=== PATIENT | male | born 1950 | race Caucasian/White ===

== ENCOUNTER 2018-06-14 10:32 | Inpatient (IN) ==
[2018-06-14] MEDS ORDERED: ASPIRIN 325 MG TABLET PO ONE (11:00)
[2018-06-14] MEDS ORDERED: POTASSIUM CHLORIDE RIDER 10 MEQ in PREMIX 1 EACH IV PRN (11:00)
[2018-06-14] MEDS ORDERED: SODIUM CHLORIDE 0.9% 1,000 ML IV SCH ×2 (11:00→15:34)
[2018-06-14] MEDS ORDERED: diphenhydrAMINE CAP 25 MG CAPSULE PO ONE (11:00)
[2018-06-14] MEDS ORDERED: DIAZEPAM 5 MG TABLET PO ONE (11:00)
[2018-06-14] MEDS ORDERED: MAGNESIUM SULF RIDER 2 GM in PREMIX 1 EACH IV PRN ×2 (11:00→15:21)
[2018-06-14 11:49] LABS: Basophils % 0.6 % (0.0-0.8); Eosinophils # 0.3 10*3/uL (0.0-0.87); Eosinophils % 3.9 % (0.00-10.9); Hemoglobin 14.5 GM/DL (14.0-18.0); Immature Granulocytes % 0.2 %; Immature Granulocytes Absolute 0.01 #; Lymphocytes # 1.9 10*3/uL (1.4-4.0); Lymphocytes % 29.4 % (21.2-54.2); Mean Corpuscular Hemoglobin 31 PG (27-34); Mean Corpuscular Volume 92.4 FL (87-102); Mean Platelet Volume 10.7 FL (9.6-12.0); Monocytes # 0.6 10*3/uL (0.11-0.8); Monocytes % 8.6 % (1.7-12.7); Neutrophils # 3.7 10*3/uL (1.4-7.4); Neutrophils % 57.3 % (38.7-73.9); Platelet Count 203 T/CUMM (130-400); Red Blood Count 4.76 MC/CUMM (3.8-5.5); Red Cell Distribution Width 12.7 % (9.3-17.3); White Blood Count 6.4 T/CUMM (4-12)
[2018-06-14 11:53] LABS: PT Patient Result 10.2 SECS; Partial Thromboplastin Time 24.7 SECS (0-40)
[2018-06-14 12:22] LABS: Calcium 8.7 MG/DL (8.5-10.1); Potassium 4.6 MMOL/L (3.5-5.1)
[2018-06-14] MEDS ORDERED: methylPREDNISolone SOD SUC 125 MG/2 ML VIAL IV ONE (12:39)
[2018-06-14] MEDS ORDERED: FAMOTIDINE 20 MG/2 ML VIAL IV ONE (12:40)
[2018-06-14] MEDS ORDERED: diphenhydrAMINE 50 MG/1 ML VIAL IV ONE (12:40)
[2018-06-14] MEDS ORDERED: diphenhydrAMINE CAP 25 MG CAPSULE ONE (12:48)
[2018-06-14] MEDS ORDERED: DIAZEPAM 5 MG TABLET ONE (12:48)
[2018-06-14] MEDS ORDERED: LIDOCAINE 1% 20 ML VIAL ONE (14:08)
[2018-06-14] MEDS ORDERED: MIDAZOLAM 2 MG/2 ML VIAL ONE (14:09)
[2018-06-14] MEDS ORDERED: fentaNYL 100 MCG/2 ML VIAL ONE (14:09)
[2018-06-14] MEDS ORDERED: HEPARIN 5,000 UNIT/1 ML VIAL ONE (14:21)
[2018-06-14] MEDS ORDERED: ZALEPLON 5 MG CAPSULE PO PRN (15:26)
[2018-06-14] MEDS ORDERED: ACETAMINOPHEN 325 MG TABLET PO PRN (15:26)
[2018-06-14] MEDS ORDERED: ACETAMINOPHEN/CODEINE 300-30 MG TABLET PO PRN (15:26)
[2018-06-14] MEDS ORDERED: CLEAR EYES BOTH EYES PRN (15:34)
[2018-06-14] MEDS ORDERED: NITROGLYCERIN SL 0.4 MG TABLET SL PRN (16:00)
[2018-06-14] MEDS: PANTOPRAZOLE 40 MG TABLET PO SCH (16:10)
[2018-06-14] MEDS: FAMOTIDINE 20 MG TABLET PO SCH ×2 (16:10→21:12)
[2018-06-14 16:13] LABS: Risk Ratio 3.93; VLDL CHOLESTEROL 23.2 MG/DL
[2018-06-14] MEDS: LORATADINE 10 MG TABLET PO SCH (17:46)
[2018-06-14] MEDS ORDERED: predniSONE 50 MG TABLET PO ONE (18:00)
[2018-06-14] MEDS ORDERED: FIBER 0.52 GM PO SCH (21:00)
[2018-06-14] MEDS: METOPROLOL TARTRATE 25 MG TABLET PO SCH (21:11)
[2018-06-14] MEDS: diphenhydrAMINE CAP 25 MG CAPSULE PO SCH (21:12)
[2018-06-15 04:30] LABS: Basophils % 0.1 % (0.0-0.8); Hematocrit 43.6 VOL% (42.0-52.0); Hemoglobin 14.5 GM/DL (14.0-18.0); Immature Granulocytes % 0.7 %; Mean Corpuscular HGB Conc 33.3 GM/DL (32-36); Mean Corpuscular Hemoglobin 30 PG (27-34); Mean Corpuscular Volume 91.2 FL (87-102); Mean Platelet Volume 11.2 FL (9.6-12.0); Monocytes # 0.1 10*3/uL (0.11-0.8); Monocytes % 0.9 % (1.7-12.7); Neutrophils # 13.6 10*3/uL (1.4-7.4); Neutrophils % 91.3 % (38.7-73.9); Platelet Count 205 T/CUMM (130-400); Red Blood Count 4.78 MC/CUMM (3.8-5.5); Red Cell Distribution Width 12.5 % (9.3-17.3); White Blood Count 14.9 T/CUMM (4-12)
[2018-06-15 05:04] LABS: Giant Platelets Few; Lymphocytes 8 % (20-55); Platelet Estimate Adequate; Segmented Neutrophils 92 % (50-85); Total Cells Counted 100
[2018-06-15] MEDS ORDERED: ENOXAPARIN 40 MG/0.4 ML SYRINGE SUBCUT SCH (09:00)
[2018-06-15] MEDS: FAMOTIDINE 20 MG TABLET PO SCH ×2 (09:38→21:11)
[2018-06-15] MEDS: ROSUVASTATIN 10 MG TABLET PO SCH (09:38)
[2018-06-15] MEDS: METOPROLOL TARTRATE 25 MG TABLET PO SCH ×2 (09:38→21:11)
[2018-06-15] MEDS: ISOSORBIDE MONONITRATE 30 MG TABLET PO SCH (09:39)
[2018-06-15] MEDS: LORATADINE 10 MG TABLET PO SCH (09:39)
[2018-06-15] MEDS: LOSARTAN 25 MG TABLET PO SCH (09:39)
[2018-06-15] MEDS: ASPIRIN 325 MG TABLET PO SCH (09:39)
[2018-06-15] MEDS: PANTOPRAZOLE 40 MG TABLET PO SCH (09:39)
[2018-06-15] MEDS ORDERED: DEXTROSE 50% 25 GM/50 ML VIAL IV PRN (09:46)
[2018-06-15] MEDS ORDERED: CEFUROXIME INJ 1,500 MG in SYRINGE 1 EACH IV ONE (09:46)
[2018-06-15] MEDS ORDERED: GLUCAGON 1 MG VIAL IM PRN (09:46)
[2018-06-15 10:36] LABS: ABG Base Excess -2.9 MMOL/L (-2.5-2.5); ABG HCO3 21.9 MMOL/L (20-26); ABG Oxygen Saturation 96.6 % (95-100); ABG PCO2 32.8 MM HG (35-48); ABG PH 7.408 (7.35-7.45); ABG PO2 83.5 MM HG (80-95); ABG TCO2 17.6 MMOL/L (23-27); Pt O2 Delivery Device Room Air
[2018-06-15] MEDS: predniSONE 50 MG TABLET PO SCH ×2 (10:45→10:59)
[2018-06-15] MEDS ORDERED: predniSONE 50 MG TABLET PO ONE (11:00)
[2018-06-15] MEDS ORDERED: SODIUM PHOSPHATE ENEMA 133 ML BOTTLE RECTAL ONE (15:33)
[2018-06-15] MEDS: CHLORHEXIDINE 4% SOLN 118 ML BOTTLE TOP SCH ×2 (16:14→21:11)
[2018-06-15] MEDS: CHLORHEXIDINE 0.12% ORAL RINSE 60 ML BOTTLE SWISH/SPIT SCH (21:11)
[2018-06-15] MEDS: diphenhydrAMINE CAP 25 MG CAPSULE PO SCH (21:11)
[2018-06-16] MEDS ORDERED: VANCOMYCIN 1,000 MG VIAL ONE (05:18)
[2018-06-16] MEDS ORDERED: PAPAVERINE 60 MG/2 ML VIAL ONE (05:18)
[2018-06-16] MEDS ORDERED: FAMOTIDINE 20 MG TABLET PO ONE (05:30)
[2018-06-16] MEDS ORDERED: LORazepam 1 MG TABLET PO ONE (05:30)
[2018-06-16] MEDS: PANTOPRAZOLE 40 MG TABLET PO SCH ×2 (05:43→14:24)
[2018-06-16] MEDS: METOPROLOL TARTRATE 25 MG TABLET PO SCH ×2 (05:43→14:25)
[2018-06-16] MEDS: ISOSORBIDE MONONITRATE 30 MG TABLET PO SCH ×2 (05:44→14:25)
[2018-06-16] MEDS ORDERED: SUFentanil 250 MCG/5 ML AMP ONE (05:55)
[2018-06-16] MEDS ORDERED: CEFUROXIME INJ 1,500 MG in SYRINGE 1 EACH IV ONE (06:30)
[2018-06-16] MEDS ORDERED: PHENYLEPHRINE DRIP 40 MG/250 ML PREMIX IV ONE (07:42)
[2018-06-16] MEDS ORDERED: NITROPRUSSIDE 50 MG/2 ML VIAL ONE (07:42)
[2018-06-16] MEDS ORDERED: CALCIUM CHLORIDE 1,000 MG/10 ML SYRINGE IV ONE (07:43)
[2018-06-16] MEDS ORDERED: POTASSIUM CHLORIDE RIDER 100 ML IV ONE (07:43)
[2018-06-16] MEDS ORDERED: ALBUMIN 5% 12.5 GM/250 ML VIAL IV ONE (07:43)
[2018-06-16 07:47] LABS: ABG Base Excess -0.7 MMOL/L (-2.5-2.5); ABG HCO3 23.9 MMOL/L (20-26); ABG PCO2 33.3 MM HG (35-48); ABG PH 7.443 (7.35-7.45); ABG TCO2 20.2 MMOL/L (23-27); Glucose Heart Surgery 100 MG/DL (74-106); Hematocrit Heart Surgery 36.4 PERCENT (42-52); Hemoglobin Heart Surgery 11.8 G/DL (14.0-18.0); Ionized Calcium Arterial 1.07 MMOL/L (1.21-1.46); PCO2 Patient Temp Arterial 33.3 MMHG; PH Patient Temp Arterial 7.443; Patient Temperature 37 CELCIUS; Potassium Heart/CVR 3.5 MMOL/L (3.5-5.1); Sodium Heart/CVR 141 MMOL/L (135-145)
[2018-06-16 07:54] LABS: Apearance,Urine CLEAR (Clear); Bilirubin,Urine Negative (Negative); Blood, Urine Negative (Negative); Glucose,Urine (UA) Negative (Negative); Ketones,Urine Negative (Negative); Mucus,Urine Occasional /LPF (Occasional); Nitrite,Urine Negative (Negative); Protein,Urine Negative; RBC,Urine 1 /HPF (0-4); Urine Color Yellow (Yellow); Urine Specific Gravity 1.019 (1.001-1.035); Urine Urobilinogen < 2.0 EU/DL (0.2-1.0); WBC,Urine <1 /HPF (0-6)
[2018-06-16] MEDS ORDERED: PHENYLEPHRINE DRIP 20 MG/250 ML PREMIX IV ONE (09:17)
[2018-06-16] MEDS ORDERED: NITROGLYCERIN DRIP 50 MG/250 ML BOTTLE IV ONE ×2 (09:17→11:21)
[2018-06-16] MEDS ORDERED: HEPARIN/NACL 0.9% 2 UNITS/ML 500 ML IV ONE (09:17)
[2018-06-16 09:20] LABS: Hematocrit Heart Surgery 25.2 PERCENT (42-52); PCO2 Patient Temp Venous 36.3 MM HG; PH Patient Temp Venous 7.454; PO2 Patient Temp Venous 46.5 MM HG; Potassium Heart/CVR 4.4 MMOL/L (3.5-5.1); VBG Base Excess 1.6 MEQ/L (0-4); VBG HCO3 25.7 MEQ/L (24-28); VBG Oxygen Saturation 85.1 %; VBG PCO2 36.3 MMHG (41-51); VBG PH 7.454; VBG PO2 46.5 MMHG (17-40)
[2018-06-16 09:25] LABS: Hemoglobin Heart Surgery 8.1 G/DL (14.0-18.0)
[2018-06-16] MEDS ORDERED: MIDAZOLAM 10 MG/2 ML VIAL ONE ×2 (09:33)
[2018-06-16] MEDS ORDERED: HEPARIN 10,000 UNIT/10 ML VIAL ONE ×2 (09:33→10:27)
[2018-06-16] MEDS ORDERED: CALCIUM CHLORIDE 1,000 MG/10 ML VIAL IV ONE (09:33)
[2018-06-16] MEDS ORDERED: VECURONIUM 10 MG VIAL IV ONE (09:34)
[2018-06-16] MEDS ORDERED: SODIUM CHLORIDE 0.9% 100 ML IV ONE (09:34)
[2018-06-16] MEDS ORDERED: SODIUM CHLORIDE 0.9% 1,000 ML IV ONE (09:34)
[2018-06-16] MEDS ORDERED: ETOMIDATE 40 MG/20 ML VIAL IV ONE (09:34)
[2018-06-16] MEDS ORDERED: ePHEDrine 50 MG/ML AMP ONE (09:34)
[2018-06-16] MEDS ORDERED: LACTATED RINGERS 1,000 ML IV ONE (09:34)
[2018-06-16] MEDS ORDERED: SODIUM CHLORIDE 0.9% 250 ML IV ONE (09:34)
[2018-06-16] MEDS ORDERED: AMINOCAPROIC ACID 5,000 MG/20 ML VIAL IV ONE (09:34)
[2018-06-16 09:50] LABS: Hematocrit Heart Surgery 28.5 PERCENT (42-52); Hemoglobin Heart Surgery 9.2 G/DL (14.0-18.0); PCO2 Patient Temp Venous 32.8 MM HG; PH Patient Temp Venous 7.496; PO2 Patient Temp Venous 48.8 MM HG; Potassium Heart/CVR 4.1 MMOL/L (3.5-5.1); VBG Base Excess 2.4 MEQ/L (0-4); VBG HCO3 26.4 MEQ/L (24-28); VBG PCO2 32.8 MMHG (41-51); VBG PH 7.496; VBG PO2 48.8 MMHG (17-40)
[2018-06-16] MEDS ORDERED: SODIUM BICARBONATE 50 MEQ/50 ML SYRINGE IV ONE (10:27)
[2018-06-16] MEDS ORDERED: PROTAMINE SULFATE 250 MG/25 ML VIAL IV ONE (10:27)
[2018-06-16] MEDS ORDERED: ALBUMIN 25% 25 GM/100 ML VIAL IV ONE (10:27)
[2018-06-16] MEDS ORDERED: MANNITOL 12.5 GM/50 ML VIAL IV ONE (10:27)
[2018-06-16] MEDS ORDERED: FUROSEMIDE 20 MG/2 ML VIAL ONE (10:27)
[2018-06-16] MEDS ORDERED: methylPREDNISolone SOD SUC 1,000 MG/8 ML VIAL ONE (10:27)
[2018-06-16] MEDS ORDERED: DEXTROSE 5% KCL 20 MEQ 20 MEQ/1,000 ML BAG IV ONE (10:27)
[2018-06-16] MEDS ORDERED: MAGNESIUM SULFATE 10 GM/20 ML VIAL IV ONE (10:27)
[2018-06-16] MEDS ORDERED: PROTAMINE SULFATE 50 MG/5 ML VIAL IV ONE ×3 (10:28→11:45)
[2018-06-16] MEDS ORDERED: PHENYLEPHRINE 10 MG/1 ML VIAL IV ONE (10:28)
[2018-06-16 10:43] LABS: ABG Base Excess 0.1 MMOL/L (-2.5-2.5); ABG HCO3 24.5 MMOL/L (20-26); ABG Oxygen Saturation 99.8 % (95-100); ABG PCO2 35.7 MM HG (35-48); ABG PH 7.434 (7.35-7.45); ABG TCO2 21.7 MMOL/L (23-27); Glucose Heart Surgery 203 MG/DL (74-106); Hematocrit Heart Surgery 31.6 PERCENT (42-52); Hemoglobin Heart Surgery 10.2 G/DL (14.0-18.0); Ionized Calcium Arterial 1.27 MMOL/L (1.21-1.46); PCO2 Patient Temp Arterial 35.7 MMHG; PH Patient Temp Arterial 7.434; Patient Temperature 37 CELCIUS; Potassium Heart/CVR 3.4 MMOL/L (3.5-5.1); Sodium Heart/CVR 138 MMOL/L (135-145)
[2018-06-16] MEDS: LACTATED RINGERS 1,000 ML IV PRN ×7 (11:45→21:18)
[2018-06-16] MEDS ORDERED: MIDAZOLAM 2 MG/2 ML VIAL IV PRN (11:47)
[2018-06-16] MEDS ORDERED: MAGNESIUM SULF RIDER 2 GM in PREMIX 1 EACH IV PRN (11:47)
[2018-06-16] MEDS ORDERED: INSULIN REGULAR DRIP 100 ML IV SCH (11:47)
[2018-06-16] MEDS ORDERED: MIDAZOLAM 10 MG/2 ML VIAL IV PRN (11:47)
[2018-06-16] MEDS ORDERED: LACTATED RINGERS 250 ML IV PRN (11:47)
[2018-06-16] MEDS ORDERED: POTASSIUM CHLORIDE RIDER 10 MEQ in PREMIX 1 EACH IV PRN (11:47)
[2018-06-16] MEDS ORDERED: INSULIN REGULAR 100 UNIT/ML IV PRN (11:47)
[2018-06-16] MEDS ORDERED: VECURONIUM 10 MG VIAL IV PRN ×2 (11:47)
[2018-06-16] MEDS ORDERED: CALCIUM CHLORIDE 1,000 MG/10 ML SYRINGE IV PRN (11:47)
[2018-06-16] MEDS ORDERED: DEXTROSE 50% 25 GM/50 ML VIAL IV PRN ×2 (11:47)
[2018-06-16] MEDS ORDERED: PHENYLEPHRINE DRIP 40 MG/250 ML PREMIX IV PRN (11:47)
[2018-06-16] MEDS ORDERED: INSULIN REGULAR 100 UNIT/ML IV ONE (11:47)
[2018-06-16] MEDS ORDERED: MAGNESIUM SULF RIDER 4 GM in PREMIX 1 EACH IV PRN (11:47)
[2018-06-16] MEDS ORDERED: MORPHINE 10 MG/1 ML VIAL IV PRN (11:47)
[2018-06-16] MEDS ORDERED: MORPHINE 4 MG/1 ML VIAL IV PRN (11:47)
[2018-06-16] MEDS ORDERED: ACETAMINOPHEN 650 MG SUPP RECTAL PRN (11:47)
[2018-06-16] MEDS ORDERED: SODIUM CHLORIDE 0.45% 1,000 ML IV SCH ×2 (11:47)
[2018-06-16] MEDS ORDERED: ONDANSETRON 4 MG/2 ML VIAL IV PRN (11:47)
[2018-06-16] MEDS ORDERED: NITROPRUSSIDE 100 MG in DEXTROSE 5% 250 ML IV PRN (11:47)
[2018-06-16 11:54] LABS: Basophils % 0.3 % (0.0-0.8); Eosinophils # 0.1 10*3/uL (0.0-0.87); Hematocrit 35.2 VOL% (42.0-52.0); Hemoglobin 11.9 GM/DL (14.0-18.0); Immature Granulocytes % 1.5 %; Immature Granulocytes Absolute 0.17 #; Lymphocytes # 1.2 10*3/uL (1.4-4.0); Lymphocytes % 10.6 % (21.2-54.2); Mean Corpuscular HGB Conc 33.8 GM/DL (32-36); Mean Corpuscular Hemoglobin 30 PG (27-34); Mean Corpuscular Volume 89.8 FL (87-102); Mean Platelet Volume 11.2 FL (9.6-12.0); Monocytes # 0.7 10*3/uL (0.11-0.8); Neutrophils # 8.9 10*3/uL (1.4-7.4); Neutrophils % 80.6 % (38.7-73.9); Platelet Count 158 T/CUMM (130-400); Red Blood Count 3.92 MC/CUMM (3.8-5.5); Red Cell Distribution Width 13.2 % (9.3-17.3)
[2018-06-16 11:56] LABS: ABG Base Excess 0.7 MMOL/L (-2.5-2.5); ABG Oxygen Saturation 97.8 % (95-100); ABG PCO2 41.9 MM HG (35-48); ABG PH 7.396 (7.35-7.45); ABG TCO2 22.3 MMOL/L (23-27); Glucose Heart Surgery 174 MG/DL (74-106); Hematocrit Heart Surgery 42.4 PERCENT (42-52); Hemoglobin Heart Surgery 13.8 G/DL (14.0-18.0); Potassium Heart/CVR 3.5 MMOL/L (3.5-5.1)
[2018-06-16 11:59] LABS: INR 1.1
[2018-06-16] MEDS: ALBUMIN 5% 12.5 GM in PREMIX 1 EACH IV PRN ×5 (12:00→17:26)
[2018-06-16] MEDS: POTASSIUM CHLORIDE RIDER 20 MEQ in PREMIX 1 EACH IV PRN ×5 (12:00→21:44)
[2018-06-16] MEDS ORDERED: SEVOFLURANE 1 UNIT/15 MINUTE INH ONE (12:11)
[2018-06-16 12:20] LABS: Albumin 3.5 G/DL (3.4-5.0); Bilirubin,Total 0.8 MG/DL (0.2-1.0); Calcium 8.7 MG/DL (8.5-10.1); Osmolality,Calculated 293.7 MOS/KG (273-304); Potassium 3.5 MMOL/L (3.5-5.1); Total Protein 5.9 G/DL (6.4-8.3)
[2018-06-16] MEDS: CHLORHEXIDINE 4% SOLN 118 ML BOTTLE TOP SCH (12:53)
[2018-06-16] MEDS: LORATADINE 10 MG TABLET PO SCH (12:53)
[2018-06-16] MEDS: KETOROLAC 30 MG/1 ML VIAL IV SCH ×3 (12:57→23:01)
[2018-06-16 13:04] LABS: CKMB % 8.3 %
[2018-06-16 13:05] LABS: Troponin I 3.8 NG/ML (0.00-0.045)
[2018-06-16 13:30] LABS: ABG Base Excess 1.1 MMOL/L (-2.5-2.5); ABG HCO3 25.4 MMOL/L (20-26); ABG Oxygen Saturation 97.1 % (95-100); ABG PCO2 42.7 MM HG (35-48); ABG PH 7.395 (7.35-7.45); ABG PO2 88.6 MM HG (80-95); ABG TCO2 23.4 MMOL/L (23-27); Glucose Heart Surgery 136 MG/DL (74-106); Hematocrit Heart Surgery 34.8 PERCENT (42-52); Hemoglobin Heart Surgery 11.3 G/DL (14.0-18.0); Potassium Heart/CVR 4.2 MMOL/L (3.5-5.1)
[2018-06-16] MEDS: FAMOTIDINE 20 MG TABLET PO SCH (14:24)
[2018-06-16] MEDS: CHLORHEXIDINE 0.12% ORAL RINSE 60 ML BOTTLE SWISH/SPIT SCH ×2 (14:24→21:07)
[2018-06-16] MEDS: ROSUVASTATIN 10 MG TABLET PO SCH (14:25)
[2018-06-16] MEDS: ASPIRIN 325 MG TABLET PO SCH (14:25)
[2018-06-16] MEDS: LOSARTAN 25 MG TABLET PO SCH (14:25)
[2018-06-16] MEDS: SODIUM CHLORIDE 0.9% 1,000 ML IV SCH (14:26)
[2018-06-16 15:13] LABS: ABG Base Excess 2.2 MMOL/L (-2.5-2.5); ABG HCO3 26.4 MMOL/L (20-26); ABG PCO2 42.4 MM HG (35-48); ABG PH 7.413 (7.35-7.45); ABG TCO2 24.6 MMOL/L (23-27); Glucose Heart Surgery 139 MG/DL (74-106); Hematocrit Heart Surgery 30.8 PERCENT (42-52); Potassium Heart/CVR 3.8 MMOL/L (3.5-5.1)
[2018-06-16 18:47] LABS: ABG Base Excess 1.6 MMOL/L (-2.5-2.5); ABG HCO3 25.8 MMOL/L (20-26); ABG Oxygen Saturation 98.3 % (95-100); ABG PCO2 42.5 MM HG (35-48); ABG PH 7.403 (7.35-7.45); ABG TCO2 24.2 MMOL/L (23-27); Glucose Heart Surgery 161 MG/DL (74-106); Hematocrit Heart Surgery 29.9 PERCENT (42-52); Hemoglobin Heart Surgery 9.6 G/DL (14.0-18.0); Potassium Heart/CVR 4.2 MMOL/L (3.5-5.1)
[2018-06-16] MEDS: CEFUROXIME INJ 1,500 MG in SYRINGE 1 EACH IV SCH (19:13)
[2018-06-16] MEDS: INSULIN REGULAR 100 UNIT/ML SUBCUT PRN (19:13)
[2018-06-16 20:40] LABS: ABG Base Excess 1.2 MMOL/L (-2.5-2.5); ABG HCO3 25.5 MMOL/L (20-26); ABG Oxygen Saturation 97.7 % (95-100); ABG PH 7.394 (7.35-7.45); ABG PO2 96.1 MM HG (80-95); ABG TCO2 23.9 MMOL/L (23-27); Glucose Heart Surgery 179 MG/DL (74-106); Hematocrit Heart Surgery 31.5 PERCENT (42-52); Hemoglobin Heart Surgery 10.2 G/DL (14.0-18.0); Potassium Heart/CVR 4.1 MMOL/L (3.5-5.1)
[2018-06-16 21:04] LABS: CKMB % 5.7 %
[2018-06-16 21:06] LABS: Troponin I 5.06 NG/ML (0.00-0.045)
[2018-06-16 21:39] LABS: ABG Base Excess 0.8 MMOL/L (-2.5-2.5); ABG HCO3 25.5 MMOL/L (20-26); ABG Oxygen Saturation 96.3 % (95-100); ABG PCO2 41.6 MM HG (35-48); ABG PH 7.406 (7.35-7.45); ABG PO2 94.1 MM HG (80-95); ABG TCO2 26.8 MMOL/L (23-27); Glucose Heart Surgery 179 MG/DL (74-106); Potassium Heart/CVR 3.9 MMOL/L (3.5-5.1)
[2018-06-17] MEDS: INSULIN REGULAR 100 UNIT/ML SUBCUT PRN (00:21)
[2018-06-17 04:05] LABS: ABG Base Excess 0.4 MMOL/L (-2.5-2.5); ABG HCO3 24.8 MMOL/L (20-26); ABG Oxygen Saturation 97.2 % (95-100); ABG PCO2 41.4 MM HG (35-48); ABG PH 7.395 (7.35-7.45); ABG PO2 94.1 MM HG (80-95); ABG TCO2 22.9 MMOL/L (23-27); Glucose Heart Surgery 152 MG/DL (74-106); Hematocrit Heart Surgery 32.5 PERCENT (42-52); Hemoglobin Heart Surgery 10.5 G/DL (14.0-18.0); Potassium Heart/CVR 4.1 MMOL/L (3.5-5.1)
[2018-06-17 04:18] LABS: Basophils % 0.1 % (0.0-0.8); Hematocrit 29.6 VOL% (42.0-52.0); Hemoglobin 9.9 GM/DL (14.0-18.0); Immature Granulocytes % 0.8 %; Lymphocytes # 0.6 10*3/uL (1.4-4.0); Lymphocytes % 4.6 % (21.2-54.2); Mean Corpuscular HGB Conc 33.4 GM/DL (32-36); Mean Corpuscular Hemoglobin 30 PG (27-34); Mean Corpuscular Volume 90.5 FL (87-102); Mean Platelet Volume 11.2 FL (9.6-12.0); Monocytes # 0.6 10*3/uL (0.11-0.8); Monocytes % 4.8 % (1.7-12.7); Neutrophils # 11.3 10*3/uL (1.4-7.4); Neutrophils % 89.7 % (38.7-73.9); Platelet Count 143 T/CUMM (130-400); Red Blood Count 3.27 MC/CUMM (3.8-5.5); Red Cell Distribution Width 12.9 % (9.3-17.3); White Blood Count 12.6 T/CUMM (4-12)
[2018-06-17 04:41] LABS: Albumin 3.9 G/DL (3.4-5.0); Bilirubin,Direct 0.15 MG/DL (0.0-0.20); Bilirubin,Total 0.8 MG/DL (0.2-1.0); Calcium 8.2 MG/DL (8.5-10.1); Osmolality,Calculated 292.7 MOS/KG (273-304); Potassium 4.1 MMOL/L (3.5-5.1); Total Protein 5.8 G/DL (6.4-8.3)
[2018-06-17 04:42] LABS: Band Neutrophils 3 % (0-10); CKMB % 4.9 %; Lymphocytes 6 % (20-55); Platelet Estimate Normal; Segmented Neutrophils 89 % (50-85); Total Cells Counted 100
[2018-06-17 04:43] LABS: Troponin I 2.62 NG/ML (0.00-0.045)
[2018-06-17] MEDS: KETOROLAC 30 MG/1 ML VIAL IV SCH ×4 (06:20→23:46)
[2018-06-17] MEDS: CEFUROXIME INJ 1,500 MG in SYRINGE 1 EACH IV SCH (07:51)
[2018-06-17] MEDS: CHLORHEXIDINE 0.12% ORAL RINSE 60 ML BOTTLE SWISH/SPIT SCH ×2 (08:17→20:27)
[2018-06-17] MEDS: CARVEDILOL 3.125 MG TABLET PO SCH ×2 (08:17→20:27)
[2018-06-17] MEDS: LOSARTAN 25 MG TABLET PO SCH (10:00)
[2018-06-17] MEDS: LORATADINE 10 MG TABLET PO SCH (10:00)
[2018-06-17] MEDS ORDERED: SODIUM CHLOR 0.45% KCL 20 MEQ 20 MEQ/1,000 ML BAG IV SCH (11:02)
[2018-06-17] MEDS ORDERED: ONDANSETRON 4 MG/2 ML VIAL IV PRN (11:02)
[2018-06-17] MEDS ORDERED: ACETAMINOPHEN 325 MG TABLET PO PRN (11:02)
[2018-06-17] MEDS ORDERED: ZALEPLON 5 MG CAPSULE PO PRN (11:02)
[2018-06-17] MEDS ORDERED: DEXTROSE 50% 25 GM/50 ML VIAL IV PRN ×2 (11:02)
[2018-06-17] MEDS ORDERED: MAGNESIUM SULF RIDER 2 GM in PREMIX 1 EACH IV PRN (11:02)
[2018-06-17] MEDS ORDERED: MAGNESIUM SULF RIDER 4 GM in PREMIX 1 EACH IV PRN (11:02)
[2018-06-17] MEDS ORDERED: GLUCAGON 1 MG VIAL IM PRN ×2 (11:02)
[2018-06-17] MEDS ORDERED: MAGNESIUM HYDROXIDE SUSP 30 ML UDCUP PO PRN (11:02)
[2018-06-17] MEDS ORDERED: ALUMINUM/MAGNES/SIMETH MAX STR 30 ML UDCUP PO PRN (11:02)
[2018-06-17] MEDS: oxyCODONE/ACETAMINOPHEN 5-325 MG TABLET PO PRN (20:26)
[2018-06-17] MEDS: ROSUVASTATIN 10 MG TABLET PO SCH (20:27)
[2018-06-18] MEDS: KETOROLAC 30 MG/1 ML VIAL IV SCH ×4 (05:34→22:21)
[2018-06-18] MEDS ORDERED: FUROSEMIDE 40 MG/4 ML VIAL IV ONE (06:00)
[2018-06-18 06:37] LABS: Basophils % 0.1 % (0.0-0.8); Hematocrit 32.1 VOL% (42.0-52.0); Hemoglobin 10.8 GM/DL (14.0-18.0); Immature Granulocytes Absolute 0.16 #; Lymphocytes # 0.9 10*3/uL (1.4-4.0); Lymphocytes % 5.6 % (21.2-54.2); Mean Corpuscular HGB Conc 33.6 GM/DL (32-36); Mean Corpuscular Hemoglobin 31 PG (27-34); Mean Corpuscular Volume 90.7 FL (87-102); Mean Platelet Volume 11.9 FL (9.6-12.0); Monocytes # 1.1 10*3/uL (0.11-0.8); Monocytes % 6.9 % (1.7-12.7); Neutrophils # 13.8 10*3/uL (1.4-7.4); Neutrophils % 86.4 % (38.7-73.9); Platelet Count 141 T/CUMM (130-400); Red Blood Count 3.54 MC/CUMM (3.8-5.5); Red Cell Distribution Width 12.9 % (9.3-17.3); White Blood Count 15.9 T/CUMM (4-12)
[2018-06-18 06:55] LABS: Alanine Aminotransferase 20 U/L (16-61); Albumin 3.3 G/DL (3.4-5.0); Alkaline Phosphatase 45 U/L (45-117); Aspartate Amino Transferase 15 U/L (0-37); Bilirubin,Indirect 0.6 MG/DL (0.0-1.0); Blood Urea Nitrogen 22 MG/DL (7-18); Calcium 8.1 MG/DL (8.5-10.1); Glucose 131 MG/DL (74-106); Osmolality,Calculated 287.1 MOS/KG (273-304); Potassium 4.1 MMOL/L (3.5-5.1); Sodium 142 MMOL/L (136-145); Total Protein 5.7 G/DL (6.4-8.3)
[2018-06-18] MEDS: oxyCODONE/ACETAMINOPHEN 5-325 MG TABLET PO PRN (10:15)
[2018-06-18] MEDS: LORATADINE 10 MG TABLET PO SCH (10:22)
[2018-06-18] MEDS: DOCUSATE SODIUM 100 MG CAPSULE PO SCH (10:22)
[2018-06-18] MEDS: FERROUS SULFATE 325 MG TABLET PO SCH (10:23)
[2018-06-18] MEDS: PANTOPRAZOLE 40 MG TABLET PO SCH (10:23)
[2018-06-18] MEDS: ASPIRIN EC 325 MG TABLET PO SCH (10:23)
[2018-06-18] MEDS: LOSARTAN 25 MG TABLET PO SCH (10:24)
[2018-06-18] MEDS: CARVEDILOL 3.125 MG TABLET PO SCH ×2 (10:24→20:36)
[2018-06-18] MEDS: CHLORHEXIDINE 0.12% ORAL RINSE 60 ML BOTTLE SWISH/SPIT SCH ×2 (10:25→22:23)
[2018-06-18] MEDS: ROSUVASTATIN 10 MG TABLET PO SCH (20:36)
[2018-06-19] MEDS: KETOROLAC 30 MG/1 ML VIAL IV SCH ×4 (04:40→23:15)
[2018-06-19 04:49] LABS: Basophils % 0.1 % (0.0-0.8); Eosinophils # 0.1 10*3/uL (0.0-0.87); Eosinophils % 0.9 % (0.00-10.9); Hematocrit 33.7 VOL% (42.0-52.0); Immature Granulocytes % 0.8 %; Immature Granulocytes Absolute 0.09 #; Lymphocytes # 1.8 10*3/uL (1.4-4.0); Lymphocytes % 15.6 % (21.2-54.2); Mean Corpuscular HGB Conc 32.6 GM/DL (32-36); Mean Corpuscular Hemoglobin 30 PG (27-34); Mean Corpuscular Volume 92.6 FL (87-102); Mean Platelet Volume 10.8 FL (9.6-12.0); Monocytes # 1.4 10*3/uL (0.11-0.8); Monocytes % 11.7 % (1.7-12.7); Neutrophils # 8.3 10*3/uL (1.4-7.4); Neutrophils % 70.9 % (38.7-73.9); Platelet Count 144 T/CUMM (130-400); Red Blood Count 3.64 MC/CUMM (3.8-5.5); Red Cell Distribution Width 12.9 % (9.3-17.3); White Blood Count 11.8 T/CUMM (4-12)
[2018-06-19 05:34] LABS: Alanine Aminotransferase 35 U/L (16-61); Albumin 2.9 G/DL (3.4-5.0); Alkaline Phosphatase 50 U/L (45-117); Aspartate Amino Transferase 20 U/L (0-37); Bilirubin,Direct < 0.100 MG/DL (0.0-0.20); Bilirubin,Indirect 0.3 MG/DL (0.0-1.0); Bilirubin,Total < 0.39 MG/DL (0.2-1.0); Blood Urea Nitrogen 26 MG/DL (7-18); Calcium 7.8 MG/DL (8.5-10.1); Glucose 98 MG/DL (74-106); Potassium 3.9 MMOL/L (3.5-5.1); Sodium 143 MMOL/L (136-145); Total Protein 5.4 G/DL (6.4-8.3)
[2018-06-19 05:36] LABS: Troponin I 0.813 NG/ML (0.00-0.045)
[2018-06-19] MEDS: DOCUSATE SODIUM 100 MG CAPSULE PO SCH (08:54)
[2018-06-19] MEDS: PANTOPRAZOLE 40 MG TABLET PO SCH (08:55)
[2018-06-19] MEDS: ASPIRIN EC 325 MG TABLET PO SCH (08:55)
[2018-06-19] MEDS: POTASSIUM CHLORIDE 20 MEQ TABLET PO PRN ×2 (08:55→10:27)
[2018-06-19] MEDS: LOSARTAN 25 MG TABLET PO SCH (08:55)
[2018-06-19] MEDS: LORATADINE 10 MG TABLET PO SCH (08:55)
[2018-06-19] MEDS: CARVEDILOL 3.125 MG TABLET PO SCH ×2 (08:55→20:37)
[2018-06-19] MEDS: FERROUS SULFATE 325 MG TABLET PO SCH (08:55)
[2018-06-19] MEDS: CHLORHEXIDINE 0.12% ORAL RINSE 60 ML BOTTLE SWISH/SPIT SCH ×2 (09:05→20:37)
[2018-06-19] MEDS: ROSUVASTATIN 10 MG TABLET PO SCH (20:37)
[2018-06-20] MEDS: KETOROLAC 30 MG/1 ML VIAL IV SCH (05:46)
[2018-06-20 08:02] VITALS: BP 136/83
[2018-06-20] MEDS: FERROUS SULFATE 325 MG TABLET PO SCH (09:23)
[2018-06-20] MEDS: PANTOPRAZOLE 40 MG TABLET PO SCH (09:23)
[2018-06-20] MEDS: CARVEDILOL 3.125 MG TABLET PO SCH (09:23)
[2018-06-20] MEDS: ASPIRIN EC 325 MG TABLET PO SCH (09:23)
[2018-06-20] MEDS: DOCUSATE SODIUM 100 MG CAPSULE PO SCH (09:23)
[2018-06-20] MEDS: LOSARTAN 25 MG TABLET PO SCH (09:23)
[2018-06-20] MEDS: LORATADINE 10 MG TABLET PO SCH (09:23)
[2018-06-20] MEDS: CHLORHEXIDINE 0.12% ORAL RINSE 60 ML BOTTLE SWISH/SPIT SCH (09:35)
== END 2018-06-20 12:22 | disposition home health service (06) | DRG 234 ==
LOC: N.CL 10:32 → N.TELES 15:18 → N.CVR 06-16 07:40 → N.TELES 06-17 10:45
PROVIDERS: ADMIT Internal Medicine Cardiovascular Disease; ATTEND Internal Medicine Cardiovascular Disease